=== PATIENT | female | born 1960 | race Caucasian/White ===

== ENCOUNTER 2021-07-24 15:06 | Outpatient (REF) | payer OTHER, SELFPAY ==
--- NOTE | ~2021-07-24 | US_ITS ---
EXAMINATION: US ABDOMEN COMPLETE CLINICAL INFORMATION: Elevated LFTs. COMPARISON: None TECHNIQUE: Real-time imaging of the abdominal viscera. FINDINGS: PANCREAS: The head and body the pancreas are normal. The tail is not well seen due to bowel gas. ABDOMINAL AORTA: The proximal, mid, and distal segments are normal in caliber. INFERIOR VENA CAVA: Visualized portions are normal. LIVER: Liver echotexture is slightly increased. The liver is upper normal in size, right lobe measuring 18 cm. The liver contour is normal. No focal hepatic lesion. There is no intrahepatic biliary duct dilatation seen. GALLBLADDER: Surgically absent. COMMON BILE DUCT: Normal in caliber measuring 0.4 cm in diameter. RIGHT KIDNEY: Normal. No hydronephrosis. No renal calculi or focal parenchymal lesions. The kidney measures 12.1 cm in maximum dimension. LEFT KIDNEY: Normal. No hydronephrosis. No renal calculi or focal parenchymal lesions. The kidney measures 11.0 cm in maximum dimension. SPLEEN: Normal. The spleen measures 12.0 cm in maximum dimension. FREE FLUID: None. US/US abdomen complete IMPRESSION: Slightly echogenic upper normal-size liver. Limited visualization of the tail the pancreas.
== END 2021-07-24 15:07 | disposition home or self-care (01) ==
LOC: HO.US 15:06
PROVIDERS: PCP Nurse Practitioner Family; Visit Provider Internal Medicine Gastroenterology
DX: R79.89 Other specified abnormal findings of blood chemistry (principal)
CPT/HCPCS: 76700; 76981

== ENCOUNTER 2022-03-05 07:06 | Day surgery (SDC) | payer OTHER, SELFPAY ==
--- NOTE | 2022-03-04 13:23 | HO.ANESPROP2 ---
Documented by User: Pari Rocha NP 03/04/22 13:26 HPI - Anesthesia Eval Consult details Narrative: 61yo F for Upper Endoscopy and Colonoscopy COUNT INCLUDES THE [facility] Past Medical History Medical History (Updated 03/04/22 @ 12:20 by Billie Michaud, JAMES) Breast cancer, left Diabetes mellitus YATES (nonalcoholic steatohepatitis) Renal artery stenosis Surgical History Surgical History (Updated 03/04/22 @ 12:20 by iBllie Michaud, JAMES) H/O colonoscopy H/O sinus surgery History of liver biopsy Hx of cholecystectomy Social History Social History Patient Tobacco Use Status: Never used Tobacco Are you DNR?: No Advance Directives: No Advance Directives Information Provided: Yes Nutrition Risks: No Nutritional Risk Meds Allergies Allergy/AdvReac Type Severity Reaction Status Date / Time metaxalone [From Skelaxin] Allergy Unknown Verified 03/04/22 12:15 Home Medications Medication Instructions Recorded Confirmed Last Taken Type anastrozole 1 mg tablet 1 tab PO DAILY 03/04/22 03/04/22 Unknown History aspirin 81 mg tablet,delayed 81 mg PO DAILY 03/04/22 03/04/22 02/21/22 History release atenolol 50 mg-chlorthalidone 25 1 tab PO DAILY 03/04/22 03/04/22 Unknown History mg tablet melatonin 10 mg tablet,extended mg PO 03/04/22 03/04/22 Unknown History release trazodone 50 mg tablet 3 pill PO BEDTIME 03/04/22 03/04/22 Unknown History prednisone 10 mg tablet 3 tab PO DAILY 03/05/22 03/05/22 Unknown History prednisone 20 mg tablet 2 tab PO DAILY 03/05/22 03/05/22 Unknown History Exam Exam Date and Time: March 04, 2022 1323 Assessment and Plan Assessment Anesthesia Assessment: Chart Reviewed Documented by User: Sesar Mixon MD 03/05/22 08:20 COUNT INCLUDES THE [facility] Past Medical History Medical History (Updated 03/04/22 @ 12:20 by Billie Michaud RN) Breast cancer, left Diabetes mellitus YATES (nonalcoholic steatohepatitis) Renal artery stenosis Family History Family history of problems with anesthesia: No Surgical History Surgical History (Updated 03/04/22 @ 12:20 by Billie Michaud RN) H/O colonoscopy H/O sinus surgery History of liver biopsy Hx of cholecystectomy History of Problems with Anesthesia: No Social History Social History Patient Tobacco Use Status: Never used Tobacco Are you DNR?: No Advance Directives: No Advance Directives Information Provided: Yes Nutrition Risks: No Nutritional Risk Meds Allergies Allergy/AdvReac Type Severity Reaction Status Date / Time metaxalone [From Skelaxin] Allergy Unknown Verified 03/04/22 12:15 Home Medications Medication Instructions Recorded Confirmed Last Taken Type anastrozole 1 mg tablet 1 tab PO DAILY 03/04/22 03/04/22 Unknown History aspirin 81 mg tablet,delayed 81 mg PO DAILY 03/04/22 03/04/22 02/21/22 History release atenolol 50 mg-chlorthalidone 25 1 tab PO DAILY 03/04/22 03/04/22 Unknown History mg tablet melatonin 10 mg tablet,extended mg PO 03/04/22 03/04/22 Unknown History release trazodone 50 mg tablet 3 pill PO BEDTIME 03/04/22 03/04/22 Unknown History prednisone 10 mg tablet 3 tab PO DAILY 03/05/22 03/05/22 Unknown History prednisone 20 mg tablet 2 tab PO DAILY 03/05/22 03/05/22 Unknown History Exam Airway Mallampati Class: II TM Dist: >3cm Neck ROM: Full Assessment and Plan Assessment Anesthesia Assessment: Anesthesia Plan Discussed Final Anesthetic Review Family History of Problems with Anesthesia: No History of Problems with Anesthesia: No NPO: Yes ASA Class: II Final Preanesthetic Review: No Changes in Pt Med Stat, Meds/Allgs Chart Reviewed, Consent Obtained/Reviewed and Anes Risks/Benef Reviewed Patient Risk: Low Procedure Risk: Low Anesthetic Plan Anesthetic Plan: MAC: Disposition: Standard PACU
[2022-03-05 06:13] VITALS: BMI 36.1
[2022-03-05 07:11] VITALS: BP 110/58; PULSE 54; RESP 18; TEMP 36.6; O2SAT 99
[2022-03-05] MEDS: Lactated Ringers 1,000 ML 100 ML IVCONT (07:26)
--- NOTE | 2022-03-05 07:37 | MHC.SHP ---
Pre-Procedural Eval Section A Date of Service: 03/05/22 Section B Chief Complaint: screening,reflux Details of Present Illness: see H*P and update, currently on prednisone and azathioprine for autoimmune hepatitis. Relevant Family History (Specify if Yes): No Relevant Social History: None Present Medications: see Short Stay Collaborative assessment Medical History: No relevant PMH History of Previous Operations: No relevant previous surgery Allergies: Allergies Allergy/AdvReac Type Severity Reaction Status Date / Time metaxalone [From Skelaxin] Allergy Unknown Verified 03/04/22 12:15 Review of Systems Sugical H&P ROS: Negative: Constitution, Cardiovascular, Respiratory, Neurological, Psychiatric, Hem-Onc, Allergic/Immunologic, Gastrointestinal, Genitourinary, Musculoskeletal, Integumentary, Endocrine and Eyes/Ears/Nose/Throat Exam Surgical H&P Exam: Normal: HEENT, Normal: Heart, Normal: Lungs, Normal: Extremities, Normal: Abdomen, Normal: Skin and Normal: Neurological Plan Diagnosis/Plan: Unchanged I have reviewed the history and physical and performed a pertinent physical examination on my patient. No changes have occurred unless specified. Time Spent With Patient Time: Total time managing care of this patient today ____ minutes.
--- NOTE | 2022-03-05 08:23 | P.BOP_ITS ---
Brief Operative Note Date of Service: 03/05/22 Pre-op diagnosis: gerd,screening Post-op diagnosis: same Surgeon: Siddharth Andrews Anesthesia: MAC Was an Acupressure Therapist used for this Procedure?: No Estimated blood loss (mL): 5 Pathology: other Condition: stable Disposition: PACU
[2022-03-05 08:26] VITALS: BP 134/68; PULSE 57; RESP 16; TEMP 36.2; O2SAT 97
[2022-03-05 08:41] VITALS: BP 155/84; PULSE 60; RESP 16; TEMP 36.4; O2SAT 97
--- NOTE | 2022-03-05 09:35 | OP_ITS ---
SURGEON: Siddharth Andrews MD INDICATIONS: Gastroesophageal reflux disease and colon cancer screening. PREOPERATIVE DIAGNOSIS: POSTOPERATIVE DIAGNOSIS: PROCEDURE PERFORMED: Upper endoscopy with biopsy, colonoscopy to the terminal ileum with snare polypectomy and biopsy. ESTIMATED BLOOD LOSS: COMPLICATIONS: ANESTHESIA: Monitored anesthesia care. ASSISTANTS: SPECIMENS: DESCRIPTION OF PROCEDURE: Date: 03/05/22. History and physical performed. The risks and benefits of the procedure were explained to the patient. Informed consent was obtained. The patient was placed in the left lateral decubitus position. The Olympus video gastroscope was introduced into the esophagus, stomach, and duodenum. Examination was performed and the scope was removed. She was repositioned for colonoscopy. A digital rectal exam was performed and was found to be normal. The Olympus pediatric video colonoscope was introduced into the rectum and advanced to the cecum without difficulty. The cecum was identified by transillumination, palpation, and identification of ileocecal valve. Examination was performed. The scope was removed. She tolerated both procedures well and was returned to recovery area in stable condition. FINDINGS: Upper endoscopy: 1. Esophagus: The esophagus was normal. There was no esophagitis. Biopsies were obtained from the EG junction. 2. Stomach the stomach was normal. Antral biopsies were obtained to evaluate for H pylori. 3. Duodenum: The bulb and second portion were normal. COLONOSCOPY: The terminal ileum was normal. The visualized colonic mucosa was normal. The quality of prep was good. There was no evidence of colitis. Two polyps were identified. Both measured less than 10 mm. The first at 70 cm was removed with a snare and recovered via suction. The second was located in the rectum and was removed with biopsy forceps. Retroflexed examination showed moderate-sized internal hemorrhoids. The quality of prep was good. There was mild sigmoid diverticulosis. IMPRESSION: 1. Gastroesophageal reflux disease. 2. Colon polyps. RECOMMENDATION: Follow up the biopsy results. MD LUIS Hollis/LEXIS / [id number] MTDD
== END 2022-03-05 09:13 | disposition home or self-care (01) ==
LOC: HO.SSS 07:07
PROVIDERS: PCP Nurse Practitioner Family; Visit Provider Internal Medicine Gastroenterology
PROC: (CPT 45385; principal; 2022-03-05 08:10)
DX: Z12.11 Encounter for screening for malignant neoplasm of colon (principal); D12.6 Benign neoplasm of colon, unspecified; D12.8 Benign neoplasm of rectum; K21.9 Gastro-esophageal reflux disease without esophagitis; K75.4 Autoimmune hepatitis; E11.9 Type 2 diabetes mellitus without complications; I10 Essential (primary) hypertension; C50.912 Malignant neoplasm of unspecified site of left female breast; Z79.811 Long term (current) use of aromatase inhibitors; Z79.52 Long term (current) use of systemic steroids; Z79.82 Long term (current) use of aspirin; Z79.899 Other long term (current) drug therapy; Z88.8 Allergy status to other drugs, medicaments and biological substances
CPT/HCPCS: 45385; 45380; 43239; 88305; 88342; J2250